=== PATIENT | female | born 1975 | race Caucasian/White ===

== ENCOUNTER 2023-08-18 18:05 | Emergency (ER) | payer OTHER, SELFPAY ==
[2023-08-18 18:05] VITALS: BMI 31.8
[2023-08-18 18:09] VITALS: BP 178/105
[2023-08-18 18:27] LABS: % Basophils 0.9 % (0-2); % Eosinophils 1.1 % (0-6); % Immature Granulocytes 0.2 % (0-0.5); % Lymphocytes 27.5 % (20.5-51.1); % Monocytes 5.3 % (1.7-9.3); Absolute Eosinophils 0.1 10^3/uL (0-0.7); Absolute Lymphocytes 1.3 10^3/uL (1.2-3.4); Absolute Monocytes 0.2 10^3/uL (0.1-0.6); Hematocrit 40.7 % (37.0-47.0); Hemoglobin 13.9 g/dL (12.0-16.0); Mean Corp Hgb Conc. 34.2 g/dL (33.0-37.0); Mean Corpuscular Volume 87.7 fL (81.0-99.0); Mean Platelet Volume 10.2 fL (7.4-10.4); Nucleated Red Blood Cells % 0 %; Platelet Count 199 10^3/uL (130-400); Red Blood Cell Count 4.64 10^6/uL (4.20-5.40); Red Cell Dist. Width 12.9 % (11.5-14.5); White Blood Cell Count 4.5 10^3/uL (4.8-10.8)
[2023-08-18 18:37] LABS: HCG, Serum Qualitative Screen Negative
[2023-08-18 18:55] LABS: Lactic Acid 0.8 mmol/L (0.7-2.0)
[2023-08-18 19:03] LABS: ALT (SGPT) 14 U/L (0-35); AST (SGOT) 19 U/L (14-36); Albumin 4.5 g/dl (3.5-5.0); Alkaline Phosphatase 68 U/L (38-126); Blood Urea Nitrogen 12 mg/dl (7-17); Calcium 9.2 mg/dl (8.4-10.2); Carbon Dioxide 22 mmol/L (22-30); Chloride 107 mmol/L (98-107); Glucose 116 mg/dl (70-99); Lipase 88 U/L (23-300); Potassium 3.7 mmol/L (3.5-5.1); Sodium 138 mmol/L (135-145); Total Bilirubin 0.6 mg/dl (0.2-1.3); Total Protein 7.5 g/dl (6.3-8.2); eGFR > 60.00
[2023-08-18 20:17] VITALS: BP 114/69
[2023-08-18 20:27] LABS: Urine Albumin Negative (Neg - Trace); Urine Bilirubin 1+ (Negative); Urine Character Clear (Clear); Urine Color Yellow; Urine Glucose Negative (Negative); Urine Ketone Negative (Negative); Urine Leukocyte Negative (Negative); Urine Nitrite Negative (Negative); Urine Occult Blood Trace (Negative); Urine Urobilinogen Negative (Neg - 1+)
[2023-08-18 20:41] LABS: Urine Squamous Cell 16-20 /LPF (Few)
[2023-08-18 20:42] LABS: Urine Bacteria Few (Negative); Urine Mucus Moderate; Urine Red Blood Cell 0-2 /HPF (0-2); Urine White Cell 0-2 /HPF (0-5)
[2023-08-18] MEDS: TORADOL 30 MG IV (20:53)
[2023-08-18] MEDS: PROTONIX IV 40 MG IV (20:53)
[2023-08-18] MEDS: ZOFRAN 4 MG IV (20:53)
--- NOTE | 2023-08-18 20:56 | ED.GENMED ---
History of Present Illness
General
Chief Complaint: Abdominal Pain
Source: patient
Exam Limitations: none
Time Seen by Provider: 08/18/23 19:55
History of Present Illness
History of Present Illness:
This is a 48 year old female that comes in with c/o abd pain for the past 5-6 days. States that at first she noticed just a little blood in her stool but she did not have any insurance. States that she just got her insurance today. Then 3 days ago
the adam got worse and she is nauseated. States that she has had yellow stool with mucous. States that her pain is on the right lower abd and under the ribs to the back. States that she has nausea, vomiting and diarrhea. States that she also has
a headache with dizziness. Denies any fever, chills, chest pain, SOB, urinary burning.
Past History
Past History
ED Past Medical History: Asthma, GERD, HTN, Psychiatric (Anxiety) and Other (Ulcers, UTI, Right ovarian cyst, Hypoglycemia, Kidney stones, Migraine, Endometriosis, Anemia, DVT, )
ED Past Surgical History: Appendectomy, Gynecological (Hysterectomy with cervix removed, Tubal, D&C, D&E, ), Orthopedic (Shoulder surgery X 3) and Other ( lysis of adhesions , Polypectomy, )
Social History
Tobacco: Vaping
Alcohol: Occasional
Personal:
Living: with family
Review of Systems
Review of Systems
All Other Systems: ROS reviewed and negative except as documented in HPI and ROS
Constitutional: Reports no symptoms; Denies fever or chills
EENT: Reports no symptoms
Respiratory: Reports no symptoms; Denies cough or trouble breathing
Cardiac: Reports no symptoms; Denies chest pain
ABD/GI: Reports abdominal pain, nausea, vomiting and diarrhea
: Reports no symptoms; Denies dysuria, frequency or urgency
Musculoskeletal: Reports no symptoms
Skin: Reports no symptoms
Neurological: Reports dizzy and headache
Psychiatric: Reports no symptoms
Phy Exam
General Physical Exam
General Presentation: mild distress
General age: appears stated age
General Skin: warm and dry
General Habitus: normal
General Mental: alert
General Hydration: dry mucous membranes
ENT Exam
ENT Exam: TM's normal, pharynx normal and neck supple
Eye Exam
Eye Exam: EOMI
Cardiovascular Exam
Cardiovascular Exam: regular rate/rhythm, no edema, no murmur and normal peripheral pulses
Pulmonary Exam
Pulmonary Exam: lungs clear, no respiratory distress, no rales, chest non tender, no crackles, no rhonchi, no wheezing and no cough
Gastrointestinal Exam
Gastrointestinal Exam: normal bowel sounds, soft, no organomegaly, no pulsatile mass, non distended and tender (Epigastric tenderness and right sided tenderness with palpation)
Musculoskeletal Exam
Musculoskeletal Exam: full ROM and no edema
Skin Exam
Skin Exam: normal color, warm/dry, no rash and no petechia
Psychiatric Exam
Psychiatric Exam: normal mood/affect
Course
Orders/Labs/Results
Orders:
Orders
08/18/23 18:15
Test Result ONCE
08/18/23 18:21
Complete Blood Count/With Diff Urgent
Comprehensive Metabolic Panel Urgent
HCG, Serum Qualitative Screen Urgent
Lactic Acid Urgent
Lipase Urgent
Blood Culture Urgent
KIM Source: Blood/Venous
Specimen Description:
08/18/23 20:14
Urinalysis Reflex To Culture Urgent
Date Specimen was Collected: 08/18/23
Time Specimen was Collected: 20:12
Urine Microscopic Reflex Cult Urgent
08/18/23 20:46
CT Abd/pelvis W Iv Cont Urgent
Comment:
Reason For Exam: Right sided abd pain, Epigastric pain
0.9% Sodium Chloride 1000 ml [Nss] 1,000 ml IV BOLUS
Ketorolac [Toradol] 30 mg IV NOW STA
Ondansetron Injectable [Zofran] 4 mg IV NOW STA
Pantoprazole [Protonix IV] 40 mg IV NOW STA
08/18/23 23:24
STOOL [C difficile Antigen & Toxins] Urgent
KIM Source: Feces/Stool
Specimen Description:
Stool Culture Urgent
KIM Source: Feces/Stool
Specimen Description:
Stool For WBC Urgent
KIM Source: Feces/Stool
Specimen Description:
Abnormal Lab Results
08/18/23 08/18/23
18:21 20:14
WBC 4.5 L 10^3/uL
(4.8-10.8)
Glucose 116 H mg/dl
(70-99)
Ur Occult Blood Reflex Trace A
(Negative)
Urine Bilirubin 1+ A
(Negative)
Urine Bacteria (Reflex) Few A
(Negative)
08/18/23 18:21
08/18/23 18:21
WBC very slightly low. Glucose nonfasting. Lipase normal at 88, HCG negative, Urine negative for infection.
Vital Signs
Initial and Last Documented VS:
Initial Vital Signs
Temp Pulse Resp BP Pulse Ox
98.9 F 62 22 178/105 99
08/18/23 18:09 08/18/23 18:09 08/18/23 18:09 08/18/23 18:09 08/18/23 18:09
Last Documented Vital Signs
Temp Pulse Resp BP Pulse Ox
98.9 F 62 22 114/69 99
08/18/23 18:09 08/18/23 18:09 08/18/23 18:09 08/18/23 20:17 08/18/23 20:18
MDM/Problems Addressed
Differential Diagnosis Includes:
Colitis, Diverticulitis,
MDM/Problems Addressed:
This is a 48 year old female that comes in withy c/o right sided abd pain, and epigastric pain. States that this started 5-6 days ago but in the past 3 days the pain has gotten worse.
Will get labs and CT scan. Will medicate for pain and give IV fluids.
Back into see patient. Explained that her blood work is normal and her urine is negative for any infection. CT is negative for any acute process. This is possible a gastritis. Will start patient on Protonix. Patient has an appointment with the PCP
on Friday and is unable to get into see her GI specialist until October. Patient to return with any concerns.
Chronic conditions affecting care:
history of adhesions, Ulcers
Acute Exacerbation and/or Progression of Chronic Illness:
Ulcers
*Radiology
Radiology exam reviewed: radiology read reviewed (CT-Mild hepatosplenomegaly. Minimal hepatic cirrhosis. Mild diverticulosis in the sigmoid colon. 2.9cm benigh-appearing cyst in the left ovary. Previous hysterectomy and appendctomy. )
*Pulse Oximetry
Patient hypoxic: no
*EKG
Interpreted by ED Provider?: NA
Rate: EKG- N/A
*[employer] Interpretation
Rate: [employer]- N/A
*Critical Care Note
Total Time (30-74mins, 75-104mins- exclusive of procedures): Not Applicable
ED Attending Note
-
Portions of this chart may have been created with voice recognition software.� Occasional wrong word or��sound alike� substitutions may have occurred due to the inherent limitations of voice recognition software.
Discharge Plan
Departure
Patient Disposition: Home (Routine Discharge)
Date of Disposition: 08/18/23
Time of Disposition: 23:27
Patient with high blood pressure during this ER visit?: No
Condition: Good
Covid-19: Not Applicable
Discharge Problem:
Abdominal pain
Instructions: Abdominal Pain
Prescriptions:
New
pantoprazole [Protonix] 40 mg tablet,delayed release (DR/EC)
40 mg PO DAILY Qty: 30 0RF
No Action
lorazepam 0.5 MG tablet
0.5 mg PO Q4HPRN PRN (Reason: anxiety)
albuterol sulfate [Ventolin HFA] 90 MCG/PUFF HFA aerosol inhaler
1 puff inhalation PRN PRN (Reason: allergy SOB)
ondansetron HCl 4 MG tablet
4 mg PO Q8HPRN PRN (Reason: nausea)
epinephrine [EpiPen] 0.3 MG/0.3/SYRINGE auto-injector
0.3 mg IM DIRECTED PRN (Reason: allergic reaction)
omeprazole magnesium [Prilosec OTC] 20 MG tablet,delayed release (DR/EC)
20 mg PO BID
cyclobenzaprine 10 MG tablet
10 mg PO TIDPRN PRN (Reason: spasm)
topiramate 25 MG tablet
50 mg PO DAILY
nifedipine 30 MG tablet extended release
30 mg PO HS
tegovalpsz-xlujylolbpvft-dkpj 1 TAB tablet
1 tab PO Q4HPRN PRN (Reason: migraine)
loratadine 10 MG tablet
10 mg PO DAILY
topiramate 25 MG tablet
25 mg PO DAILY
fluoxetine 10 MG capsule
10 mg PO DAILY
mometasone-formoterol [Dulera] 13 GM HFA aerosol inhaler
13 gm IH BID
tiotropium bromide [Spiriva Respimat] 4 GM mist
1.25 mcg IH DAILY
clindamycin HCl 300 mg capsule
300 mg PO TID Qty: 21 0RF
clindamycin HCl [Cleocin HCl] 300 mg capsule
300 mg PO QID Qty: 28 0RF
Referrals:
Niru Desouza DO [Family Provider] - 08/20/23
Activity Restrictions/Additional Instructions:
As discussed, your blood work is normal. Your urine is negative for infection and your CT is negative for any acute process. Please increase your water intake to 8-8oz glasses daily. Follow up with the Family doctor on Friday as scheduled. You
have also had a prescription for Protonix sent to your Pharmacy as this may be Gastritis. Please take as directed. IF YOU HAVE FEVER, INCREASED OR CHANGING PAIN, OR YOU HAVE ANY OTHER CONCERNS PLEASE RETURN TO THE EMERGENCY ROOM.
Interventions
Interventions:
*Risk Screen - Suicide Last Done: 08/18/23 18:09
*General Assessment Last Done: 08/18/23 18:09
*Neglect/Abuse Screening Last Done: 08/18/23 18:09
ED- Fall Risk Assessment Last Done: 08/18/23 20:22
SE-Hjcgfz-Iybnpdmyxk Assessment Last Done: 08/18/23 20:22
Discharge Date and Time
Print Language: BULGARIAN
[2023-08-18 21:00] VITALS: BP 108/66
[2023-08-18] MEDS: NSS 1000 IV (21:04)
[2023-08-19 00:14] VITALS: BP 111/78
== END 2023-08-19 00:15 | disposition home or self-care (01) ==
LOC: EMR 18:05
PROVIDERS: Clinical Nurse Specialist Family Health; EMERGENCY PHYSICIAN Emergency Medicine; FAMILY PHYSICIAN Internal Medicine
DX: R10.13 Epigastric pain (principal); R10.31 Right lower quadrant pain; R11.2 Nausea with vomiting, unspecified; R19.7 Diarrhea, unspecified; R51.9 Headache, unspecified; R42 Dizziness and giddiness; K92.1 Melena; I10 Essential (primary) hypertension; K21.9 Gastro-esophageal reflux disease without esophagitis; J45.909 Unspecified asthma, uncomplicated; F41.9 Anxiety disorder, unspecified; E16.2 Hypoglycemia, unspecified; K74.60 Unspecified cirrhosis of liver; K57.30 Diverticulosis of large intestine without perforation or abscess without bleeding; N83.202 Unspecified ovarian cyst, left side; D64.9 Anemia, unspecified; R16.2 Hepatomegaly with splenomegaly, not elsewhere classified; F17.290 Nicotine dependence, other tobacco product, uncomplicated; Z87.440 Personal history of urinary (tract) infections; Z87.442 Personal history of urinary calculi; Z86.718 Personal history of other venous thrombosis and embolism; Z88.6 Allergy status to analgesic agent; Z88.1 Allergy status to other antibiotic agents; Z88.5 Allergy status to narcotic agent; Z88.0 Allergy status to penicillin; Z91.048 Other nonmedicinal substance allergy status
CPT/HCPCS: 99285; 96375 ×2; 96361; 96374; 74177; 80053; 81003; 81015; 83605; 83690; 84703; 85025; 87040; Q9967

== ENCOUNTER 2025-02-01 15:08 | Emergency (ER) | payer OTHER, SELFPAY ==
[2025-02-01 15:34] VITALS: BP 127/82
[2025-02-01 16:17] LABS: Urine Character Clear (Clear)
[2025-02-01 16:18] LABS: Hematocrit 38.9 % (37.0-47.0); Hemoglobin 13.5 g/dL (12.0-16.0); Mean Corp Hgb Conc. 34.7 g/dL (33.0-37.0); Mean Corpuscular Volume 85.5 fL (81.0-99.0); Nucleated Red Blood Cells % 0 %; Platelet Count 217 10^3/uL (130-400); Red Cell Dist. Width 13.0 % (11.5-14.5)
[2025-02-01 16:31] LABS: ALT (SGPT) 11 U/L (0-35); AST (SGOT) 17 U/L (14-36); Albumin 4.4 g/dl (3.5-5.0); Alkaline Phosphatase 63 U/L (38-126); Blood Urea Nitrogen 14 mg/dl (7-17); Calcium 9.2 mg/dl (8.4-10.2); Carbon Dioxide 21 mmol/L (22-30); Chloride 107 mmol/L (98-107); Glucose 106 mg/dl (70-99); Lipase 53 U/L (23-300); Potassium 3.8 mmol/L (3.5-5.1); Sodium 135 mmol/L (135-145); Total Protein 7.6 g/dl (6.3-8.2); eGFR > 60.00
[2025-02-01 16:42] LABS: Urine Squamous Cell >30 /LPF (Few)
[2025-02-01 16:43] LABS: Urine Red Blood Cell 0-2 /HPF (0-2)
[2025-02-01 19:12] VITALS: BP 131/77
[2025-02-01 20:00] VITALS: BP 117/69
--- NOTE | 2025-02-01 20:18 | ED.GENMED ---
History of Present Illness
General
Chief Complaint: Abdominal Symptoms
Time Seen by Provider: 02/01/25 20:01
History of Present Illness
History of Present Illness:
Patient is a 49-year-old woman with history of asthma, endometriosis, colon polyps chronic abdominal pain presenting to the emergency department with abdominal pain. Patient states for the past week she has had worsening of her chronic problems
which includes nausea vomiting abdominal pain. She has been having some hematochezia though intermittent. She does state that her pain in her abdomen is mostly in her right upper quadrant. She did see her primary care doctor who referred her to
the ER. I did review patient's report from the ER in May on patient's MyChart. She did have complete blood work CT scan done which showed nothing remarkable. She was discharged with GI follow-up. Unfortunately did not follow-up with GI. She
notes that today she developed some midsternal chest pain which was different so she came in for evaluation. She is also having urinary urgency and frequency. She also feels generally fatigued. And lightheaded.
Past History
Past History
ED Past Medical History: Asthma, GERD, HTN, Psychiatric (Anxiety) and Other (Ulcers, UTI, Right ovarian cyst, Hypoglycemia, Kidney stones, Migraine, Endometriosis, Anemia, DVT, )
ED Past Surgical History: Appendectomy, Gynecological (Hysterectomy with cervix removed, Tubal, D&C, D&E, ), Orthopedic (Shoulder surgery X 3) and Other ( lysis of adhesions , Polypectomy, )
Social History
Tobacco: Vaping
Alcohol: Occasional
Personal:
Living: with family
Phy Exam
Physical Exam
Physical Exam:
GENERAL: in no acute distress
HEENT: normocephalic, extraocular movements intact, dry oral mucosa
NECK: normal inspection
RESPIRATORY: no respiratory distress, clear to auscultation bilaterally
CARDIOVASCULAR: regular rate and rhythm
ABDOMEN/: soft, non-distended, right upper quadrant tenderness no rebound or guarding
EXTREMITIES: non-tender, no edema/swelling
NEUROLOGIC: awake and alert, moves all extremities
SKIN: warm
Course
Orders/Labs/Results
Orders:
Orders
02/01/25 15:11
EKG [Electrocardiogram (*1)] Urgent
Reason for Study: Vertigo / Dizzy
EKG- Treatment ONCE
02/01/25 15:58
Complete Blood Count/With Diff Urgent
Comprehensive Metabolic Panel Urgent
Lipase Urgent
Urine Microscopic Reflex Cult Urgent
Urine Reflex Culture from UA [Urinalysis Reflex To Culture] Urgent
Date Specimen was Collected: 02/01/25
Time Specimen was Collected: 15:39
Urine Culture Urgent
KIM Source: U
Specimen Description:
Date Specimen was Collected: 02/01/25
Time Specimen was Collected: 15:39
02/01/25 20:17
CT Abd/pelvis W Iv Cont Urgent
Comment:
Reason For Exam: RUQ pain, hematochezia, pre cancerous colon polyps
0.9% Sodium Chloride 1000 ml [Nss] 1,000 ml IV BOLUS
Ketorolac [Toradol] 15 mg IV NOW STA
Ondansetron Injectable [Zofran] 4 mg IV NOW STA
02/01/25 20:18
CR Chest - 2 Views Urgent
Comment:
Reason For Exam: chestpain
02/01/25 20:33
Troponin I Urgent
02/01/25 22:26
Sulfamethox./Trimethoprim Ds [Bactrim Ds 800 mg/160 mg] 1 tablet PO NOW STA
Abnormal Lab Results
02/01/25
15:58
WBC 4.5 L 10^3/uL
(4.8-10.8)
Absolute Lymphs (auto) 0.9 L 10^3/uL
(1.2-3.4)
Carbon Dioxide 21 L mmol/L
(22-30)
Glucose 106 H mg/dl
(70-99)
Urine Ketones 2+ A
(Negative)
Ur Occult Blood Reflex 3+ A
(Negative)
Urine Bacteria (Reflex) Many A
(Negative)
Urine Albumin (Reflex) 2+ A
(Neg - Trace)
02/01/25 15:58
02/01/25 15:58
Vital Signs
Initial and Last Documented VS:
Initial Vital Signs
Temp Pulse Resp BP Pulse Ox
98.1 F 68 18 127/82 97
02/01/25 15:34 02/01/25 15:34 02/01/25 15:34 02/01/25 15:34 02/01/25 15:34
Last Documented Vital Signs
Temp Pulse Resp BP Pulse Ox
98.1 F 50 15 117/69 97
02/01/25 15:34 02/01/25 22:22 02/01/25 21:45 02/01/25 20:00 02/01/25 20:20
MDM/Problems Addressed
Differential Diagnosis Includes:
Patient is a 49-year-old woman presenting to the emergency department with nausea vomiting hematochezia abdominal pain chest pain fatigue urinary problems for the past months that have acutely worsened. On arrival vitals are unremarkable and exam
does show tenderness to the right upper quadrant. Differential is broad but consists of cholecystitis versus pancreatitis versus gastroparesis versus malignancy versus reflux versus atypical ACS versus UTI. Blood work obtained prior to my
evaluation is generally unremarkable. Her urine is contaminated though patient with symptoms. After shared decision we will proceed with CT scan. Will pain control. Will give antiemetic and fluids.
*Pulse Oximetry
SaO2: 97
Oxygen Mode of Delivery: Room air
Patient hypoxic: no
*Critical Care Note
Total Time (30-74mins, 75-104mins- exclusive of procedures): Not Applicable
Update Note
Update Note:
On reevaluation patient feels slightly better. Has been able to tolerate p.o. Troponin negative. CT scan with no acute abnormality. Will discharge at this time with antibiotics. Given patient's allergies we will give Bactrim.
ED Attending Note
-
Portions of this chart may have been created with voice recognition software.� Occasional wrong word or��sound alike� substitutions may have occurred due to the inherent limitations of voice recognition software.
Discharge Plan
Departure
Patient Disposition: Home (Routine Discharge)
Date of Disposition: 02/01/25
Time of Disposition: 22:42
Patient with high blood pressure during this ER visit?: No
Discharge Problem:
UTI (urinary tract infection), Abdominal pain
Instructions: Urinary tract infection in adults - ED (DC)
Prescriptions:
New
sulfamethoxazole-trimethoprim [Bactrim DS] 800-160 mg tablet
1 tab PO BID 5 Days Qty: 10 0RF
No Action
lorazepam 0.5 MG tablet
0.5 mg PO Q4HPRN PRN (Reason: anxiety)
albuterol sulfate [Ventolin HFA] 90 MCG/PUFF HFA aerosol inhaler
1 puff inhalation PRN PRN (Reason: allergy SOB)
ondansetron HCl 4 MG tablet
4 mg PO Q8HPRN PRN (Reason: nausea)
epinephrine [EpiPen] 0.3 MG/0.3/SYRINGE auto-injector
0.3 mg IM DIRECTED PRN (Reason: allergic reaction)
omeprazole magnesium [Prilosec OTC] 20 MG tablet,delayed release (DR/EC)
20 mg PO BID
cyclobenzaprine 10 MG tablet
10 mg PO TIDPRN PRN (Reason: spasm)
topiramate 25 MG tablet
50 mg PO DAILY
nifedipine 30 MG tablet extended release
30 mg PO HS
nyqhuispkv-vwagesfqlgbgb-nsvk 1 TAB tablet
1 tab PO Q4HPRN PRN (Reason: migraine)
loratadine 10 MG tablet
10 mg PO DAILY
topiramate 25 MG tablet
25 mg PO DAILY
fluoxetine 10 MG capsule
10 mg PO DAILY
mometasone-formoterol [Dulera] 13 GM HFA aerosol inhaler
13 gm IH BID
tiotropium bromide [Spiriva Respimat] 4 GM mist
1.25 mcg IH DAILY
clindamycin HCl 300 mg capsule
300 mg PO TID Qty: 21 0RF
clindamycin HCl [Cleocin HCl] 300 mg capsule
300 mg PO QID Qty: 28 0RF
pantoprazole [Protonix] 40 mg tablet,delayed release (DR/EC)
40 mg PO DAILY Qty: 30 0RF
Referrals:
Savanna Villa MD [Active, Gastroenterology]
Niru Desouza DO [Family Provider, Internal Medicine]
Activity Restrictions/Additional Instructions:
You have been evaluated in the Emergency Department today for abdominal pain. Your evaluation did not show evidence of medical conditions requiring emergent intervention at this time.
Please schedule an appointment with your primary care physician as well as GI. We discharged on antibiotics for your urine infection. You will receive a call if we need to change your antibiotics.
Return to the Emergency Department if you experience worsening or uncontrolled pain, fevers 100.4�F or greater, recurrent vomiting, inability to tolerate food or fluids by mouth, bloody stools or vomit, black or tarry stools, or any other concerning
symptoms.
Thank you for choosing us for your care.
Interventions
Interventions:
*General Assessment Last Done: 02/01/25 15:34
*Neglect/Abuse Screening Last Done: 02/01/25 15:34
*ED COVID-19 Vaccine History Last Done: 02/01/25 19:16
*ED Influenza Vaccine History Last Done: 02/01/25 19:16
[facility] Fall Risk Assessment Tool Last Done: 02/01/25 19:16
*Risk Screen - Suicide (C-SSRS) Last Done: 02/01/25 15:34
MI-Cnpqsa-Pxeagqbpui Assessment Last Done: 02/01/25 19:16
Discharge Date and Time
Print Language: DUTCH
[2025-02-01] MEDS: TORADOL 15 MG IV (20:26)
[2025-02-01] MEDS: ZOFRAN 4 MG IV (20:26)
[2025-02-01] MEDS: NSS 1000 IV (20:26)
[2025-02-01 21:03] LABS: Troponin I < 0.012 ng/ml
[2025-02-01] MEDS: BACTRIM DS 800 MG/160 MG 1 TABLET PO (22:33)
== END 2025-02-01 22:52 | disposition home or self-care (01) ==
LOC: EMR 15:08
PROVIDERS: Emergency Medicine; EMERGENCY PHYSICIAN Student in an Organized Health Care Education/Training Program; FAMILY PHYSICIAN Internal Medicine
DX: N39.0 Urinary tract infection, site not specified (principal); R10.11 Right upper quadrant pain; G89.29 Other chronic pain; I10 Essential (primary) hypertension; J45.909 Unspecified asthma, uncomplicated; K21.9 Gastro-esophageal reflux disease without esophagitis; F41.9 Anxiety disorder, unspecified; G43.909 Migraine, unspecified, not intractable, without status migrainosus; F17.290 Nicotine dependence, other tobacco product, uncomplicated; Z87.440 Personal history of urinary (tract) infections; Z86.0100 Personal history of colon polyps, unspecified; Z86.718 Personal history of other venous thrombosis and embolism
CPT/HCPCS: 99284; 96374; 96375; 96361; 71046; 74177; 80053; 81003; 81015; 83690; 84484; 85025; 87086; 93005; Q9967